=== PATIENT | female | born 1960 | race Caucasian/White ===

== ENCOUNTER 2022-04-14 11:59 | Day surgery (SDC) | payer MEDICARE, BC ==
[2022-04-09 11:09] LABS: BASOPHILS # (AUTO) 0.1 X10'3 (0-0.2); BASOPHILS % (AUTO) 0.8 % (0-1); EOSINOPHILS # (AUTO) 0.1 X10'3 (0-0.9); EOSINOPHILS % (AUTO) 1.9 % (0-6); HEMOGLOBIN 13.8 g/dl (12.0-16.0); LYMPHOCYTES # (AUTO) 1.3 X10'3 (1.1-4.8); LYMPHOCYTES % (AUTO) 17.6 % (21-51); MEAN CORPUSCULAR HEMOGLOBIN 28.6 PG (27.0-31.0); MEAN CORPUSCULAR HGB CONC 33.6 g/dL (33.0-36.5); MEAN CORPUSCULAR VOLUME 85.2 FL (78-98); MEAN PLATELET VOLUME 8.9 FL (7.4-10.4); MONOCYTES # (AUTO) 0.6 X10'3 (0-0.9); MONOCYTES % (AUTO) 7.7 % (2-12); NEUTROPHILS # (AUTO) 5.4 X10'3 (1.8-7.7); PLATELET COUNT 241 X10'3 (140-440); RED BLOOD COUNT 4.81 X10'6 (4.20-5.60); RED CELL DISTRIBUTION WIDTH 14.6 % (11.5-14.5); WHITE BLOOD COUNT 7.6 X10'3 (4.5-11.0)
[2022-04-09 11:19] LABS: ALBUMIN 3.2 G/DL (3.4-5.0); ANION GAP 7 (8-16); BLOOD UREA NITROGEN 7 MG/DL (7-18); BUN/CREATININE RATIO 9.3 (6.6-38.0); CALCIUM 8.7 MG/DL (8.5-10.1); CHLORIDE 99 MMOL/L (99-107); CREATININE 0.75 MG/DL (0.40-0.90); GLUCOSE 95 MG/DL (70-104); POTASSIUM 4.7 MMOL/L (3.5-5.1); SODIUM 136 MMOL/L (135-145); TOTAL CARBON DIOXIDE 30.3 MMOL/L (24-32); eGFR 79 ML/MIN
[2022-04-09 11:22] LABS: APTT 28 SECONDS (22-32)
[2022-04-14] VITALS (8 sets, daily range): BP systolic 99–138; BP diastolic 52–68
[~2022-04-14] VITALS: Ht 167.6 cm; Wt 71.8 kg
[~2022-04-14 11:59] MED LIST: FLUC200T PO; HYDR200T84 PO; IRON1TAB94 PO; LIDO700A5 TOP; LURA60TA PO; LURA80TA2 PO; METO-292 PO; PANT-47 PO; PREG150C PO; SUCR1TAB34 PO; VENL225T3 PO
[2022-04-14] MEDS ORDERED: normal saline 1,000 ML IV SCH (12:20)
[2022-04-14] MEDS ORDERED: diphenhydrAMINE 25mg capsule PO PRN (12:20)
[2022-04-14] MEDS ORDERED: LORazepam 0.5 MG tablet PO PRN (12:20)
[2022-04-14] MEDS ORDERED: ATOR20TA66 PO (12:34)
[2022-04-14] MEDS ORDERED: FURO20TA4 PO (12:41)
[2022-04-14] MEDS ORDERED: ASPI81TA52 PO (12:41)
[2022-04-14] MEDS ORDERED: TEMA30CA PO (12:41)
[2022-04-14] MEDS ORDERED: ESOM20CA PO (12:41)
[2022-04-14] MEDS ORDERED: POTA-206 PO (12:41)
[2022-04-14] MEDS ORDERED: OXCA150T5 PO (12:41)
[2022-04-14] MEDS ORDERED: FAMO-128 PO (12:41)
[2022-04-14] MEDS ORDERED: FEXO-271 PO (12:41)
[2022-04-14] MEDS ORDERED: METO100T7 PO (12:41)
[2022-04-14] MEDS ORDERED: VENL150C4 PO (12:41)
[2022-04-14] MEDS ORDERED: midazolam 1 mg/ML 2ml injection ONE (14:17)
[2022-04-14] MEDS ORDERED: fentaNYL/PF 50MCG/1 ML 2ML syringe ONE (14:17)
[2022-04-14] MEDS ORDERED: nitroGLYCERIN-Tridil 50MG/D5W 250 ML IV ONE (14:17)
[2022-04-14] MEDS ORDERED: heparin 1,000unit/ml 10ml vial 10 ML ONE (14:17)
[2022-04-14] MEDS ORDERED: verapamil 2.5 mg/ml inj IV ONE (14:17)
[2022-04-14] MEDS ORDERED: LIDOcaine 1%/PF 5ML 10 MG/ML VIAL ONE (14:17)
[2022-04-14] MEDS ORDERED: iohexol 350MG/ML 100ml bottle IV ONE (14:17)
[2022-04-14] MEDS ORDERED: HYDROcodone/acetaminophen 5mg/325mg tablet PO PRN (15:20)
[2022-04-14] MEDS ORDERED: HYDROcodone/acetaminophen 10/325mg tab PO PRN (15:20)
== END 2022-04-14 17:30 | disposition home or self-care (01) ==
LOC: SSTAY O 11:59
PROVIDERS: ATTEND Student in an Organized Health Care Education/Training Program
DX: R94.39 Abnormal result of other cardiovascular function study (principal); I34.0 Nonrheumatic mitral (valve) insufficiency; I25.10 Atherosclerotic heart disease of native coronary artery without angina pectoris; Z79.899 Other long term (current) drug therapy; I42.9 Cardiomyopathy, unspecified; Z88.6 Allergy status to analgesic agent; Z88.8 Allergy status to other drugs, medicaments and biological substances; Z79.01 Long term (current) use of anticoagulants
CPT/HCPCS: 36415; 80048; 85025; 85610; 85730; 93005; 93458; 99152; C1769; C1894; J1644; J2250; J3010; J3490; J7030; Q9967; A4620; A5120; A6258; A6402

== ENCOUNTER 2022-05-21 07:35 | Outpatient (CLI) | payer MEDICARE, BC ==
[~2022-05-21] VITALS: Ht 167.6 cm; Wt 70.6 kg
[~2022-05-21 07:35] MED LIST changes: +ASPI81TA52 PO; +ATOR20TA66 PO; +ESOM20CA PO; +FAMO-128 PO; +FEXO-271 PO; -FLUC200T PO; +FURO20TA4 PO; -IRON1TAB94 PO; -LIDO700A5 TOP; -LURA80TA2 PO; -METO-292 PO; +METO100T7 PO; +OXCA150T5 PO; -PANT-47 PO; +POTA-206 PO; -SUCR1TAB34 PO; +TEMA30CA PO; +VENL150C4 PO; -VENL225T3 PO
[2022-05-21] MEDS ORDERED: albuterol 2.5 MG/3 ML nebule NEB PRN (13:05)
[2022-05-21] MEDS ORDERED: IBUP-1985 PO (13:50)
[2022-05-21] MEDS ORDERED: CALC500T11 PO (13:50)
[2022-05-21] MEDS ORDERED: [UNRECOGNIZED DRUG - CODE] OP (13:50)
[2022-05-21] MEDS ORDERED: [UNRECOGNIZED DRUG - REMARK] PO (13:50)
[2022-05-21] MEDS ORDERED: SENN-93 PO (13:50)
[2022-05-21] MEDS ORDERED: ANTACID PO (13:50)
[2022-05-21] MEDS ORDERED: ACET-1025 PO (13:50)
[2022-05-21] MEDS ORDERED: TRIA15CR62 TOP (13:50)
[2022-05-21 14:07] LABS: PRE OP PROTIME 10.5 SECONDS (9.0-12.0)
[2022-05-21 14:09] LABS: ALBUMIN 3.1 G/DL (3.4-5.0); ALBUMIN/GLOBULIN RATIO 0.9 (1.1-1.5); ALKALINE PHOSPHATASE 104 IU/L (46-116); BASOPHILS # (AUTO) 0.1 X10'3 (0-0.2); BASOPHILS % (AUTO) 0.8 % (0-1); BLOOD UREA NITROGEN 8 MG/DL (7-18); BUN/CREATININE RATIO 12.5 (6.6-38.0); CALCIUM 8.7 MG/DL (8.5-10.1); CHLORIDE 100 MMOL/L (99-107); CREATININE 0.64 MG/DL (0.40-0.90); EOSINOPHILS # (AUTO) 0.1 X10'3 (0-0.9); EOSINOPHILS % (AUTO) 1.3 % (0-6); LYMPHOCYTES # (AUTO) 1.9 X10'3 (1.1-4.8); LYMPHOCYTES % (AUTO) 22.5 % (21-51); MEAN CORPUSCULAR HEMOGLOBIN 28.6 PG (27.0-31.0); MEAN CORPUSCULAR HGB CONC 33.2 g/dL (33.0-36.5); MEAN CORPUSCULAR VOLUME 86.2 FL (78-98); MEAN PLATELET VOLUME 9.1 FL (7.4-10.4); MONOCYTES # (AUTO) 0.6 X10'3 (0-0.9); MONOCYTES % (AUTO) 7.5 % (2-12); NEUTROPHILS # (AUTO) 5.8 X10'3 (1.8-7.7); NEUTROPHILS % (AUTO) 67.9 % (42-75); PRE OP ALT 11 U/L (30-65); PRE OP ANION GAP 8 (8-16); PRE OP AST 14 U/L (10-37); PRE OP BILIRUB, TOTAL 0.3 MG/DL (0.0-1.0); PRE OP GLUCOSE 99 MG/DL (70-104); PRE OP HEMATOCRIT 40.8 % (35.0-45.0); PRE OP HEMOGLOBIN 13.5 g/dL (12.0-16.0); PRE OP PLATELET COUNT 277 X10'3 (140-440); PRE OP POTASSIUM 3.8 MMOL/L (3.4-5.1); PRE OP SODIUM 134 MMOL/L (135-145); RED BLOOD COUNT 4.74 X10'6 (4.20-5.60); RED CELL DISTRIBUTION WIDTH 15.2 % (11.5-14.5); TOTAL CARBON DIOXIDE 26.4 MMOL/L (24-32); TOTAL PROTEIN 6.6 G/DL (6.4-8.2); eGFR > 90 ML/MIN
[2022-05-21 14:26] LABS: CLARITY,URINE CLEAR (Clear); GLUCOSE, URINE NEGATIVE (Neg); KETONES,URINE NEGATIVE (Neg); LEUKOCYTE ESTERASE ,URINE NEGATIVE (Neg); NITRITES, URINE NEGATIVE (Neg); OCCULT BLOOD,URINE NEGATIVE (Neg); PROTEIN,URINE NEGATIVE (Neg); UROBILINOGEN,URINE 0.2 E.U/dL (0.2-1.0)
[2022-05-21 14:34] LABS: COLOR,URINE STRAW (Yellow); UA COLLECTION TYPE CLN CATCH MIDSTREAM
[2022-05-21] MEDS ORDERED: Insulin Reg/NS 100units/100mL 100 ML IV SCH (18:20)
[2022-05-22] MEDS ORDERED: ringers solution, lacted 1,000 ML IV SCH (05:00)
[2022-05-22] MEDS ORDERED: vancomycin 1,500 MG in NS 300ml IV soln IV ONE (05:30)
[2022-05-22] MEDS ORDERED: DOCUMENT DATE & TIME OF BETA-BLOCKER PO ONE (05:30)
[2022-05-22] MEDS ORDERED: ceFAZolin inj. 2,000 MG in dextrose 5%-water 100 ML IV ONE (05:30)
[2022-05-22] MEDS ORDERED: mupirocin 2% nasal ointment 1gm UD NS ONE (05:30)
[2022-05-22] MEDS ORDERED: famotidine 20mg tablet PO ONE (05:30)
[2022-05-22] MEDS ORDERED: metoprolol tartrate 12.5mg (1/2 tablet) PO ONE (05:30)
[2022-05-22] MEDS ORDERED: Insulin Reg/NS 100units/100mL 100 ML IV SCH ×2 (05:30→12:34)
[2022-05-22] MEDS ORDERED: LORazepam 2 mg/ml vial IV PRN (05:30)
[2022-05-22] MEDS ORDERED: dextrose 50%-water 50ml dispensing syringe IV PRN (05:30)
[2022-05-22] MEDS ORDERED: insulin Lispro (HumaLOG) vial - multi-dose SQ PRN (05:30)
[2022-05-22] MEDS ORDERED: ceFAZolin 1000mg inj ONE (05:33)
[2022-05-22] MEDS ORDERED: epiNEPHrine 1 mg/ml inj ONE (06:31)
[2022-05-22 08:00] VITALS: BP_SYST 116; BP_SYST 120; BP_DIAS 56; BP_DIAS 57
--- NOTE | 2022-05-22 08:00 | NUR ---
PRE OPED PATIENT FOR SURGERY. WHILE WAITING FOR FOR SURGERY SHE WAS CANCELED.
[2022-05-22 09:16] VITALS: BP_SYST 116
--- NOTE | 2022-05-22 10:00 | NUR ---
PATIENT'S SURGERY WAS CANCELED.
[2022-05-25 06:25] LABS: ABG BASE EXCESS 4.1 mmol/L (-2.0-2.0); ABG HCO3 27.4 mmol/L (22.0-26.0); ABG OXYGEN SATURATION 96.3 % (94-97); ABG PCO2 (T) 36.9 mmHg (32.0-45.0); ABG PO2 (T) 81.8 mmHg (75.0-100.0); ALLEN'S TEST POSITIVE; FCOHb 7.7 % (0.0-3.9); FMetHb 0.3 % (0.0-1.5); FO2Hb 88.6 % (94-97); TOTAL HEMOGLOBIN 13.6 G/dl (12.0-16.0)
[2022-06-24] MEDS ORDERED: LOP12.5T PO (10:44)
[2022-06-24] MEDS ORDERED: HYDR-3972 PO (10:44)
== END 2022-05-22 09:00 | disposition home or self-care (01) ==
LOC: LAB 07:35 → PAS IN 05-22 07:35 → UNDOADMIN 05-22 07:35 → UNDODISIN 05-22 09:00 → LAB 05-22 09:00 → EDSTATUS 05-22 11:15
PROVIDERS: ATTEND Thoracic Surgery (Cardiothoracic Vascular Surgery)
DX: Z01.818 Encounter for other preprocedural examination (principal); I70.0 Atherosclerosis of aorta; I65.23 Occlusion and stenosis of bilateral carotid arteries; I08.0 Rheumatic disorders of both mitral and aortic valves; Z79.899 Other long term (current) drug therapy
CPT/HCPCS: 36415; 36600; 71046; 80053; 81003; 82803; 83036; 85018; 85025; 85610; 85730; 86885; 86900; 86901; 86920; 87081; 93005; 93880; J3370; J7040; J7120; 94010; A6213; A6449; J0171; J0690; J1815; J2060; J3490; J7030; J7060